=== PATIENT | female | born 1940 | race Caucasian/White ===

== ENCOUNTER 2016-06-21 05:43 | Day surgery (SDC) | payer MEDICARE, OTHER ==
[2016-06-21] MEDS ORDERED: LACTATED RINGERS 1,000 ML ONE (06:10)
[2016-06-21] MEDS ORDERED: LEVALBUTEROL NEBS 1.25 MG/3 ML VIAL NEB ONE (07:07)
[2016-06-21 08:28] VITALS: BP 138/71; TEMP 98; O2SAT 98
[2016-06-21] MEDS ORDERED: PROPOFOL 200 MG/20 ML VIAL IV ONE (09:00)
--- NOTE | 2016-06-21 09:40 | OP ---
DATE OF PROCEDURE: 06/21/16 PREOPERATIVE DIAGNOSIS: 1. Colon cancer screen. POSTOPERATIVE DIAGNOSIS: 1. External hemorrhoids. 2. Extremely long and redundant sigmoid colon. 3. Sessile polyp of the proximal descending colon. 4. Sessile polyp of the distal ascending colon. 5. Incomplete examination, the cecum was not visualized. PROCEDURE: 1. Colonoscopy with polypectomy times two separate sites. SURGEON: Luis Manuel Young MD. ANESTHESIA: MAC by Parveen Brown CRNA. ESTIMATED BLOOD LOSS: Less than 2 mL. COMPLICATIONS: None apparent. TECHNIQUE: After informed consent was obtained from the patient, the patient was taken to the Endoscopy Suite and put in the left lateral decubitus position. After adequate IV sedation was obtained, a digital rectal exam was performed and the patient was noted to have large external hemorrhoids that were non-thrombosed. Rectal tone was significantly decreased. No masses were palpated. The colonoscope was then passed with good visualization through the colon. The sigmoid was extremely long and redundant. I was able to reach the mid-portion of the ascending colon, but could not make it all the way to the cecum. We did see the cecum from a distance. I identified two polyps during this procedure, one was in the distal end of the right colon and one was in the proximal end of the left colon. Each of these were removed with cold biopsy forceps with good hemostasis and complete removal obtained. The scope was then slowly withdrawn over a good 8 minute period and no other abnormalities were identified. The scope was removed. The patient tolerated the procedure well despite her advanced age and rather frail status. The patient was transported to the outpatient area in good condition. We will monitor her there. She might need another breathing treatment before she leaves to go home. She will followup with me in two weeks. #[id number] [facility]
== END 2016-06-21 08:20 | disposition home or self-care (01) ==
LOC: AMB 05:43
PROVIDERS: ATTEND Family Medicine
DX: Z12.11 Encounter for screening for malignant neoplasm of colon (principal); D12.2 Benign neoplasm of ascending colon; D12.4 Benign neoplasm of descending colon; K64.4 Residual hemorrhoidal skin tags; I50.9 Heart failure, unspecified; J44.9 Chronic obstructive pulmonary disease, unspecified; E78.00 Pure hypercholesterolemia, unspecified; Z79.82 Long term (current) use of aspirin; Z79.899 Other long term (current) drug therapy
CPT/HCPCS: 00810; 45380; 88305; 94640; J3490; J7120; J7614

== ENCOUNTER → 2016-07-05 | Outpatient (CLI) | payer MEDICARE, OTHER | END | disposition home or self-care (01) | LOC: GMAJ 16:36 | PROVIDERS: ATTEND Family Medicine | DX: I10 Essential (primary) hypertension (principal); R41.81 Age-related cognitive decline; E78.00 Pure hypercholesterolemia, unspecified ==

== ENCOUNTER → 2016-07-09 | Outpatient (CLI) | payer MEDICARE, OTHER ==
--- NOTE | 2016-07-09 15:57 | CT ---
EXAM DESCRIPTION: Chest w/Contrast CLINICAL HISTORY: COPD COMPARISON: None. TECHNIQUE: Post contrasted multidetector CT imaging of the chest. Multiplanar reconstructions were provided. FINDINGS: Lungs and large airways: There is moderate emphysema noted. No pulmonary nodule or mass noted. Pleura: Normal. No pleural effusion or thickening. Heart and pericardium: Coronary artery disease is visualized on today's study. No pericardial disease. Mediastium and robert: Normal. No lymphadenopathy by CT size criteria. Chest wall and lower neck: No significant finding. Vessels: Normal caliber aortic root and pulmonic trunk. Bones: No significant finding. IMPRESSION: Moderate emphysema, but no evidence of mass or suspicious pulmonary nodule at this time. Coronary artery disease is noted. Electronically signed by: Rex Cabrera MD 07/09/2016 3:57 PM [employer]IE[employer]
--- NOTE | 2016-07-09 16:00 | CT ---
EXAM DESCRIPTION: Maxillofacial w/wo Contrast CLINICAL HISTORY: 76 years Female, 473.0 facial pain Nonremovable dental hardware obscures the tongue. The floor the mouth is unremarkable. The epiglottis, bilateral a full diameter of false cords are symmetrical and unremarkable. Mild atherosclerotic disease of the carotid arteries. Severe degenerative change of the cervical spine with multilevel facet degeneration. COMPARISON: None. TECHNIQUE: Prior to and after the administration of contrast and slice imaging of the face was performed. FINDINGS: The orbits and globes are unremarkable. Mild involutional changes brain noted. Bilateral parotid glands and submandibular glands are unremarkable. The frontal sinuses are clear. The ethmoid air cells are clear. The sphenoid sinuses are clear. The maxillary sinuses are clear. Dental disease seen within the left maxilla. Mastoid air cells are clear. Middle ears are clear. The nasal septum is midline. No contact point noted. IMPRESSION: Today's exam demonstrates dental disease within the left maxilla. No evidence of sinus disease on today's study. Electronically signed by: Rex Cabrera MD 07/09/2016 4:00 PM [employer] ENGINE[employer]
== END | disposition home or self-care (01) ==
LOC: CT 13:16
PROVIDERS: ATTEND Family Medicine
DX: J44.9 Chronic obstructive pulmonary disease, unspecified (principal)

== ENCOUNTER 2017-01-07 09:33 | Emergency (ER) | payer MEDICARE, OTHER ==
[2017-01-07 10:01] VITALS: TEMP 100.2
--- NOTE | 2017-01-07 10:03 | ED.PDOC ---
History of Present Illness - General Chief Complaint: Respiratory Problem Stated Complaint: cough, sore throat, headache Time Seen by Provider: 01/07/17 09:50 Source: patient, RN notes reviewed, Vital Signs reviewed, family - Daughter Exam Limitations: no limitations - History of Present Illness Comments: Patient comes in with c/o cough, congestion, RICHTER, sore throat, runny nose and body aches. Symptoms started 01/04/17. No fever or chills. + fatigue. Daughter has had the same symptoms and feels she gave this to her mother. She has a history of COPD and is suppose to be on Oxygen at home but does not use it. She is concerned this is going to go into her lungs. Timing/Duration: getting worse Cough Quality/Degree: mild, productive cough, sputum - off white Possible Cause: occasional episodes, illness exposure Improving Factors: nothing Worsening Factors: nothing Associated Symptoms: cough, headache, muscle aches, nasal congestion, nasal drainage, sore throat Respiratory Risk Factors: exposure to illness Allergies/Adverse Reactions: Allergies NO KNOWN ALLERGY Allergy (Verified 05/12/12 13:57) Home Medications: Ambulatory Orders Albuterol Sulfate [Proair Respiclick] 108 mcg IN BID 06/21/16 Arformoterol Tartrate [Brovana] 15 mcg IN DAILY 06/21/16 Aspirin [Aspirin Adult Low Dose] 81 mg PO DAILY 06/21/16 Atenolol [Tenormin] 25 mg PO DAILY 06/21/16 Atorvastatin Calcium [Lipitor] 80 mg PO DAILY 06/21/16 Duloxetine HCl [Cymbalta] 60 mg PO DAILY 06/21/16 Fluticasone Propionate (Inhala [Flovent Diskus] 50 mcg IN BID 06/21/16 Lisinopril [Prinivil] 10 mg PO DAILY 06/21/16 Pantoprazole Sodium 40 mg PO DAILY 06/21/16 Primidone 50 mg PO BID 06/21/16 Roflumilast [Daliresp] 50 mg PO DAILY 06/21/16 Tiotropium [place] Monohydrate [Spiriva Handihaler] 1 puff IN DAILY 06/21/16 Tramadol HCl 25 mg PO Q6HR PRN 06/21/16 Azithromycin Tab [Zithromax] 250 mg PO DAILY #4 tab 01/07/17 Pantoprazole Sodium 40 mg PO DAILY 01/07/17 Review of Systems - Review of Systems Constitutional: States: malaise. Denies: chills, fever EENTM: States: see HPI, nose congestion, throat pain. Denies: ear pain, nose pain Respiratory: States: cough, short of breath - no change from baseline. Denies: stridor, wheezing Cardiology: States: no symptoms reported Gastrointestinal/Abdominal: States: no symptoms reported Musculoskeletal: States: muscle pain - generalized body aches Skin: States: no symptoms reported Neurological: States: headache All other Systems: No Change from Baseline Past Medical History (General) - Patient Medical History Hx Seizures: No Hx Stroke: No Hx Dementia: No Hx Asthma: No Hx of COPD: Yes Hx Cardiac Disorders: No Hx Congestive Heart Failure: No Hx Pacemaker: No Hx Hypertension: No Hx Thyroid Disease: No Hx Diabetes: No Hx Gastroesophageal Reflux: No Hx Renal Disease: No Hx Cancer: No Hx of HIV: No Hx Hepatitis C: No Hx MRSA: No - Vaccination History Hx Tetanus, Diphtheria Vaccination: Yes Hx Influenza Vaccination: Yes Hx Pneumococcal Vaccination: Yes - Social History Hx Tobacco Use: No Hx Alcohol Use: No Hx Substance Use: No Hx Substance Use Treatment: No Hx Depression: No Family Medical History - Family History Mother Family History: Unknown Living Status: Physical Exam - Physical Exam General Appearance: Alert, Comfortable, Frail, No apparent distress, Well Developed, Well Groomed, Well Hydrated, Well Nourished Eye Exam: bilateral normal ENT Exam: TMs normal, nasal drainage, pharyngeal erythema Neck: non-tender, supple, normal inspection Respiratory: chest non-tender, no respiratory distress, decreased breath sounds - bilateral bases, rhonchi - L>R Cardiovascular/Chest: regular rate, rhythm, no gallop, no murmur Gastrointestinal/Abdominal: non tender, soft Neurologic: alert, normal mood/affect, oriented x 3 Skin Exam: normal color, warm/dry Progress - Progress Progress: 01/07/17 10:36 Will give 1st dose of Zithromax here Encouraged to use Mucinex and cough medication daughter bought her Also encouraged to use her oxygen at home as prescribed - EKG/XRAY/CT XRAY: chest - No acute pulmonary process per Radiologist Departure - Departure Clinical Impression: Upper respiratory infection Qualifiers: URI type: unspecified URI Qualified Code(s): J06.9 - Acute upper respiratory infection, unspecified COPD (chronic obstructive pulmonary disease) Qualifiers: COPD type: emphysema Emphysema type: panlobular Qualified Code(s): J43.1 - Panlobular emphysema Time of Disposition: 10:38 Disposition: Discharge to Home or Self Care Condition: Good Departure Forms: ED Discharge - Pt. Copy, Patient Portal Self Enrollment Instructions: DI for Viral Upper Respiratory Infection -- Adult Diet: resume usual diet Activity: increase activity as tolerated Referrals: Luis Manuel Young MD [Primary Care Provider] - 1-5 Days Prescriptions: Azithromycin Tab [Zithromax] 250 mg PO DAILY #4 tab Home Medications: Ambulatory Orders Albuterol Sulfate [Proair Respiclick] 108 mcg IN BID 06/21/16 Arformoterol Tartrate [Brovana] 15 mcg IN DAILY 06/21/16 Aspirin [Aspirin Adult Low Dose] 81 mg PO DAILY 06/21/16 Atenolol [Tenormin] 25 mg PO DAILY 06/21/16 Atorvastatin Calcium [Lipitor] 80 mg PO DAILY 06/21/16 Duloxetine HCl [Cymbalta] 60 mg PO DAILY 06/21/16 Fluticasone Propionate (Inhala [Flovent Diskus] 50 mcg IN BID 06/21/16 Lisinopril [Prinivil] 10 mg PO DAILY 06/21/16 Pantoprazole Sodium 40 mg PO DAILY 06/21/16 Primidone 50 mg PO BID 06/21/16 Roflumilast [Daliresp] 50 mg PO DAILY 06/21/16 Tiotropium [place] Monohydrate [Spiriva Handihaler] 1 puff IN DAILY 06/21/16 Tramadol HCl 25 mg PO Q6HR PRN 06/21/16 Azithromycin Tab [Zithromax] 250 mg PO DAILY #4 tab 01/07/17 Pantoprazole Sodium 40 mg PO DAILY 01/07/17 Additional Instructions: Use Oxygen at home Take over the counter cold medications as directed
--- NOTE | 2017-01-07 10:33 | RAD ---
PROCEDURE: Chest,2 Views CLINICAL HISTORY: cough/congestion/COPD INDICATION: Same as above COMPARISON: 07/09/2016 TECHNIQUE: PA and and lateral chest radiographs were obtained. FINDINGS: Underlying changes of COPD are again seen There are no discrete airspace infiltrates, pneumothoraces or pleural effusions. The pulmonary vascularity is normal The cardiomediastinal silhouette is unremarkable for patient's age and sex. IMPRESSION: There is no acute pleural-parenchymal process seen in the imaged lung sepulveda. Place of interpretation: [facility]. Electronically signed by: Rashi Contreras MD 01/07/2017 10:31 AM CDT Workstation: [id number]
[2017-01-07] MEDS ORDERED: AZITHROMYCIN 250 MG TAB PO ONE (10:35)
[2017-01-07 11:24] VITALS: BP 119/59; O2SAT 98
== END 2017-01-07 11:18 | disposition home or self-care (01) ==
LOC: ER 09:33
DX: J06.9 Acute upper respiratory infection, unspecified (principal); J43.1 Panlobular emphysema; Z79.82 Long term (current) use of aspirin; Z79.899 Other long term (current) drug therapy
CPT/HCPCS: 71020; Q0144

== ENCOUNTER 2017-03-10 19:13 | Emergency (ER) | payer MEDICARE, OTHER ==
[2017-03-10] MEDS ORDERED: MORPHINE SULFATE INJ 10 MG/ML VIAL IV ONE (19:47)
[2017-03-10] MEDS ORDERED: ONDANSETRON INJ 4 MG/2 ML VIAL IV ONE (19:47)
[2017-03-10] MEDS ORDERED: SODIUM CHLORIDE 0.9% 1000ML 1,000 ML IVS ONE (19:47)
--- NOTE | 2017-03-10 19:51 | ED.PDOC ---
History of Present Illness - General Chief Complaint: Abdominal Pain Stated Complaint: LLQ pain onset 2 hours ago Time Seen by Provider: 03/10/17 19:40 Information Source: patient, RN notes reviewed, Vital Signs reviewed Exam Limitations: no limitations - History of Present Illness Initial Comments: Patient comes in with c/o LLQ abdominal pain that started ~ 2 hours ago. States the pain is severe, stabbing and worse with movement. + nausea. She had a normal bowel movement w/o pain prior to coming to ER. No fever or chills. Abdominal Pain Onset Location: LLQ Pain Radiation: no radiation Quality: severe, steady, stabbing Timing/Duration: 1-3 hours Improving Factors: nothing Worsening Factors: movement Associated Symptoms: nausea/vomiting Review of Systems - Review of Systems Constitutional: States: no symptoms reported. Denies: chills, fever, malaise Respiratory: States: no symptoms reported Cardiology: States: no symptoms reported Gastrointestinal/Abdominal: States: see HPI, abdominal pain, nausea. Denies: constipation, diarrhea, vomiting Genitourinary: States: no symptoms reported Musculoskeletal: States: no symptoms reported Skin: States: no symptoms reported Neurological: States: no symptoms reported All other Systems: No Change from Baseline Past Medical History (General) - Patient Medical History Hx Seizures: No Hx Stroke: No Hx Dementia: No Hx Asthma: No Hx of COPD: Yes Hx Cardiac Disorders: No Hx Congestive Heart Failure: No Hx Pacemaker: No Hx Hypertension: Yes Hx Thyroid Disease: No Hx Diabetes: Yes Hx Gastroesophageal Reflux: Yes Hx Renal Disease: No Hx Cancer: No Hx of HIV: No Hx Hepatitis C: No Hx MRSA: No Surgical History: Hysterectomy - Vaccination History Hx Tetanus, Diphtheria Vaccination: No Hx Influenza Vaccination: No Hx Pneumococcal Vaccination: Yes - Social History Hx Tobacco Use: No Hx Chewing Tobacco Use: No Hx Alcohol Use: Yes - occasional Hx Substance Use: No Hx Substance Use Treatment: No Hx Depression: Yes Feels Threatened In Home Enviroment: No Feels Threatened In a Relationship: No Hx Physical Abuse: No Hx Emotional Abuse: No Hx Suspected Abuse: No Family Medical History - Family History Mother Family History: Unknown Living Status: Physical Exam - Physical Exam General Appearance: Alert, Comfortable, Frail, No apparent distress, Well Developed, Well Groomed, Well Nourished Eyes, Ears, Nose, Throat Exam: other - dry mucous membranes Neck: supple, normal inspection Respiratory: lungs clear, normal breath sounds, no respiratory distress, no accessory muscle use Cardiovascular/Chest: regular rate, rhythm, no edema, no gallop, no murmur Gastrointestinal/Abdominal: soft, no pulsatile mass, rebound - LLQ, tenderness - LLQ Extremity: normal inspection Neurologic: alert, normal mood/affect, oriented x 3 Skin Exam: normal color, warm/dry Comments: Vital Signs 03/10/17 19:24 Temperature 97.6 F Pulse Rate [ 59 L monitor] Respiratory 16 Rate Blood Pressure 189/83 [Right Arm] O2 Sat by Pulse 91 L Oximetry Progress - Progress Progress: 03/10/17 22:02 CT showed an incarcerated L inguinal hernia with some dilated loops of small bowels. Hernia reduced manually with good relief of pain. Re-examination no inguinal tenderness, LLQ much less tender w/o rebound Discussed with Dr. Stevens, will d/c home w/ follow up w/ Dr. Young to get clearance for surgery. Patient and daughter are agreeable with plan - Results/Orders Results/Orders: Laboratory Tests 03/10/17 03/10/17 20:00 20:00 WBC 15.8 H RBC 4.33 Hgb 13.2 Hct 39.8 MCV 92.1 MCH 30.4 MCHC 33.0 RDW 13.7 Plt Count 365 MPV 7.9 Absolute Neuts (auto) 13.30 H Absolute Lymphs (auto) 1.60 Absolute Monos (auto) 0.70 Absolute Eos (auto) 0.10 Absolute Basos (auto) 0.00 Neutrophils % 84.5 H Lymphocytes % 9.9 L Monocytes % 4.5 Eosinophils % 0.8 L Basophils % 0.3 Sodium 137 Potassium 3.5 L Chloride 104 Carbon Dioxide 26 Anion Gap 10.5 L BUN 13 Creatinine 0.66 BUN/Creatinine Ratio 19.7 Random Glucose 139 H Serum Osmolality 276.2 Calcium 8.8 Total Bilirubin 0.4 AST 30 ALT 23 Alkaline Phosphatase 89 Serum Total Protein 7.1 Albumin 4.5 Globulin 2.6 Albumin/Globulin Ratio 1.7 - EKG/XRAY/CT CT Ordered: Yes - Abd/Pelvis CT Interpretation Call Back: Yes - L inguinal incarcerated hernia with dilated loops of sm bowel, early SBO Departure - Departure Clinical Impression: Incarcerated left inguinal hernia ICD-10 Supporting Text: Hernia was reduced Time of Disposition: 22:07 Disposition: Discharge to Home or Self Care Condition: Good Departure Forms: ED Discharge - Pt. Copy, Patient Portal Self Enrollment Instructions: Groin Hernia -- Adult Diet: resume usual diet Activity: increase activity as tolerated Referrals: Luis Manuel Young MD [Primary Care Provider] - 1-2 Days (To get surgical clearance for L inguinal hernia repair) Home Medications: Ambulatory Orders Albuterol Sulfate [Proair Respiclick] 108 mcg IN BID 06/21/16 Arformoterol Tartrate [Brovana] 15 mcg IN DAILY 06/21/16 Aspirin [Aspirin Adult Low Dose] 81 mg PO DAILY 06/21/16 Atenolol [Tenormin] 25 mg PO DAILY 06/21/16 Atorvastatin Calcium [Lipitor] 80 mg PO DAILY 06/21/16 Duloxetine HCl [Cymbalta] 60 mg PO DAILY 06/21/16 Fluticasone Propionate (Inhala [Flovent Diskus] 50 mcg IN BID 06/21/16 Lisinopril [Prinivil] 10 mg PO DAILY 06/21/16 Pantoprazole Sodium 40 mg PO DAILY 06/21/16 Primidone 50 mg PO BID 06/21/16 Roflumilast [Daliresp] 50 mg PO DAILY 06/21/16 Tiotropium [place] Monohydrate [Spiriva Handihaler] 1 puff IN DAILY 06/21/16 Tramadol HCl 25 mg PO Q6HR PRN 06/21/16 Azithromycin Tab [Zithromax] 250 mg PO DAILY #4 tab 01/07/17 Pantoprazole Sodium 40 mg PO DAILY 01/07/17
--- NOTE | 2017-03-10 21:00 | CT ---
EXAM: Abdoment/Pelvis w/o Contrast CLINICAL INDICATION: 77-year-old female with LEFT lower quadrant abdominal pain with rebound. COMPARISON: 12/28/2008. EXAMINATION: CT of the abdomen and pelvis was performed without intravenous or oral contrast. Multiplanar reformatted images were provided. This exam was performed according to our departmental dose optimization program which includes use of automated exposure control, adjustment of the mA and/or kV according to patient size and/or use of iterative reconstruction technique. FINDINGS: Evaluation of solid organ pathology is limited secondary to lack of intravenous contrast. Within these limitations, the following observations are made. Chest: Evaluation through the lung bases reveals emphysema without focal opacity, pleural effusion or pneumothorax. Heart size is within normal limits. No pericardial effusion. Distal esophageal diverticulum or hiatal hernia. Abdomen and pelvis: The liver, gallbladder, pancreas, spleen, bilateral kidneys and bilateral adrenal glands are within normal limits. Circumscribed focus of hypoattenuation present within the hilar region of the LEFT kidney measures 18 mm with Hounsfield units measuring eight compatible with a simple renal cyst, (series 2, image 30). The vessels reveal dense atherosclerotic calcification otherwise normal in caliber. No abdominopelvic lymph nodes are noted to be pathologically enlarged by CT measurement criteria. The large bowel is within normal limits without abnormal bowel wall thickness or bowel dilation. Diverticular disease without findings to suggest diverticulitis. A loop of small bowel is identified present within the LEFT lower quadrant inguinal hernia. Bowel loop adjacent to the hernia site reveal a focal narrowing raising the question of transition zone and possibility of early small bowel obstruction. Small bowel loop measures distended in size approximately 2 cm, (series 2, image 61). The fluid-filled loop of small bowel within the hernia measures 2.6 x 2.3 x 2.5 cm. The narrowed opening with compressed appearing bowel loop measures 1 cm, (sagittal series 601, image 15). Distal dilated loops of small bowel are organizing appearance and measuring up to 2.4 cm. No free or intermesenteric loop fluid, discrete bowel wall thickening is identified at this time. No free air. No free abdominopelvic fluid collections. The appendix is within normal limits. The osseous structures reveals severe degenerative change of the visualized thoracic and lumbar spine. Sequela of prior compression deformity of the L1 vertebral level chronic in appearance, however appears to be new since CT examination dated 12/28/2008 and lumbar spine radiograph 03/26/2016. Approximately 30% loss of vertebral body height. No significant retropulsion into the central spinal canal. The posterior superior aspect of the vertebral body extends by approximately 2 mm. IMPRESSION: 1. LEFT lower quadrant inguinal hernia containing a dilated and fluid-filled loop of small bowel with narrowed appearance of the exiting small bowel concerning for incarcerated hernia with adjacent dilated and distended loops of small bowel compatible with early small bowel obstruction. 2. Diverticular disease without findings to suggest diverticulitis. 3. Chronic appearing, however age indeterminate fracture of the superior endplate of the L1 vertebral level. Critical findings were discussed with Dr. Grider 2056 hours 03/10/2017. Electronically signed by: Trinity Aguila MD 03/10/2017 8:59 PM [facility] Workstation: [id number]
[2017-03-10 22:31] VITALS: O2SAT 96
[2017-03-10 22:34] VITALS: BP 135/65; TEMP 97.8
== END 2017-03-10 22:33 | disposition home or self-care (01) ==
LOC: ER 19:13
DX: K40.90 Unilateral inguinal hernia, without obstruction or gangrene, not specified as recurrent (principal); J44.9 Chronic obstructive pulmonary disease, unspecified; I10 Essential (primary) hypertension; E11.9 Type 2 diabetes mellitus without complications; K21.9 Gastro-esophageal reflux disease without esophagitis
CPT/HCPCS: 36415; 74176; 80053; 85025; 93005; J2270; J2405; J7030

== ENCOUNTER → 2018-01-16 | Outpatient (CLI) | payer MEDICARE, OTHER ==
--- NOTE | 2018-01-16 14:14 | CT ---
EXAM DESCRIPTION: Head CLINICAL HISTORY: HEADACHE COMPARISON: None available TECHNIQUE: Noncontrast head CT was performed with routine protocol. FINDINGS: Normal ramos-white matter differentiation. Ventricles and sulci are prominent consistent with age-related cerebral volume loss. Low density white matter around the ventricles is consistent with chronic microvascular ischemic changes. No high density hemorrhage, focal edema or shift of the midline. No sulcal effacement. Normal orbital contents. Asymmetry of the globes is consistent with previous right cataract surgery. Basilar cisterns appear clear. Intact calvarium with no fracture or lytic lesion. Normal aeration of tympanic cavities and mastoid air cells. No fluid levels in the paranasal sinuses. Skull base appears intact. Symmetrical internal auditory canals. IMPRESSION: No acute intracranial pathologic process. This exam was performed according to our departmental dose-optimization program, which includes automated exposure control, adjustment of the mA and/or kV according to patient size and/or use of iterative reconstruction technique. Total DLP equals 752.48 mGycm. Electronically signed by: Liu Vance MD 01/16/2018 2:12 PM CDT
== END ==
LOC: CT 13:30
PROVIDERS: ATTEND Family Medicine
DX: G44.209 Tension-type headache, unspecified, not intractable (principal)

== ENCOUNTER → 2018-01-27 | Outpatient (CLI) | payer MEDICARE, OTHER ==
--- NOTE | 2018-01-27 21:12 | MRI ---
EXAM DESCRIPTION: Cervical Spine: MRI. CLINICAL HISTORY: N88.2 COMPARISON: MRI scan cervical spine without contrast 08/11/2013. TECHNIQUE: Multiplanar MRI, multiple sequences, non-contrast High-field. FINDINGS: C2-3: Disc desiccation with minimal posterior midline bulge. Arthrosis of the left facet and left uncinate spur with moderate narrowing of the neural foramen. Canal and right neuroforamen are patent. C3-4: Disc space loss and disc desiccation. Right posterior disc osteophyte bulge abutting the cord and the C4 nerve. Facet arthrosis and right uncinate spur with moderate neural foraminal narrowing. Left uncinate spur and moderate left neural foraminal narrowing. Minimal arthrosis left facet. C4-5: Disc desiccation and minimal disc space loss bilateral uncinate spurs. Mild facet arthrosis bilaterally. Moderate bilateral neural foraminal narrowing more on the right than the left. C5-6: Disc desiccation and moderate disc space loss. Posterior small disc osteophyte bulge almost abutting the cord. Bilateral uncinate spurs. Mild facet arthrosis right.. Bilateral neural foraminal stenosis more on the left than the right. Posterior ligaments are prominent. Borderline mild canal stenosis. Right T1 and T2 signal abutting the endplate to the left of midline. C6-7: Disc desiccation and moderate disc space loss. Minimal anterior ridging. Posterior midline bulge abutting the cord. Bilateral uncinate spurs. Posterior hypertrophy ligaments. Minimal arthrosis of the right facet. Mild right neural foraminal narrowing and moderate left neural foraminal narrowing. Borderline central canal stenosis. C7-T1: Disc desiccation with no bulge. Canal and neural foramina are patent. Facets are unremarkable. T1-T2: Disc desiccation and posterior bulge. Bilateral uncinate spurs. Mild canal and neural foraminal narrowing. Negative facets. Spinal alignment slightly kyphotic in the mid spine.. No cord compression or cord edema. Atlantoaxial joint demonstrates minimal arthrosis.. Base of the cerebellar tonsils is above the foramen magnum. Paravertebral soft tissues unremarkable. Vertebral bodies are not compressed at any level. Normal marrow signal in the remaining vertebral bodies and the posterior elements. IMPRESSION: 1. Right posterior C3-4 disc osteophyte bulge with moderate right neural foraminal narrowing and near stenosis of the right canal. Stable since the prior study. 2. Left uncinate spur and arthrosis of the left facet at C2-3 with moderate narrowing of the neural foramen. Progressed since the prior study. 3. Bilateral uncinate spurs at C4-5 and facet arthrosis. Moderate bilateral neural foraminal narrowing more on the right. Progressed since the prior study. 4. Posterior C5-6 disc osteophyte bulge abutting the cord. Bilateral neural foraminal stenosis more on the left than the right. Progressed since the prior study. Borderline mild canal stenosis. Progressed since the prior study. 5. C6-7 Disc desiccation and disc space loss posterior disc bulge. Borderline central canal stenosis. Moderate left neural foraminal narrowing. Progressed since the prior study. 6. Hemangioma in the superior C6 vertebral body stable since the prior study. Electronically signed by: Robinson Cunningham MD 01/27/2018 9:11 PM CDT
== END ==
LOC: MRI 14:00
PROVIDERS: ATTEND Family Medicine
DX: M54.12 Radiculopathy, cervical region (principal); M46.02 Spinal enthesopathy, cervical region; M50.223 Other cervical disc displacement at C6-C7 level; D18.09 Hemangioma of other sites

== ENCOUNTER 2019-09-28 15:24 | Emergency (ER) | payer MEDICARE, OTHER ==
[2019-09-28] MEDS ORDERED: LEVALBUTEROL NEBS 1.25 MG/3 ML VIAL NEB ONE ×2 (15:43→15:58)
[2019-09-28] MEDS ORDERED: IPRATROPIUM BROMIDE NEBS 0.5 MG/2.5 ML VIAL NEB ONE (15:44)
[2019-09-28] MEDS ORDERED: methylPREDNISolone SODIUM SUC 125 MG/2 ML VIAL IV ONE (15:44)
--- NOTE | 2019-09-28 16:27 | ED.PDOC ---
History of Present Illness - General Chief Complaint: Respiratory Problem Time Seen by Provider: 09/28/19 15:43 Source: patient, RN notes reviewed, Vital Signs reviewed, family - Daughter Exam Limitations: no limitations - History of Present Illness Initial Comments: Patient is a spry 79-year-old white female who presents with complaints of worsening cough, shortness of breath and increased difficulty in breathing. Patient states is been going on 4 to 5 days. The cough is productive for a whitish sputum. Patient denies any fever or chills. Shortness of breath is worse with exertion. She is not getting relief with her 4 times daily duo nebs. Patient also states she has had to turn up her oxygen to feel better. 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 Allergies/Adverse Reactions: Allergies NO KNOWN ALLERGY Allergy (Verified 09/28/19 16:33) Home Medications: Ambulatory Orders Albuterol Sulfate [Proair Respiclick] 108 mcg IN BID 06/21/16 Arformoterol Tartrate [Brovana] 15 mcg IN DAILY 06/21/16 Aspirin [Aspirin Adult Low Dose] 81 mg PO DAILY 06/21/16 Atenolol [Tenormin] 25 mg PO DAILY 06/21/16 Atorvastatin Calcium [Lipitor] 80 mg PO DAILY 06/21/16 Duloxetine HCl [Cymbalta] 60 mg PO DAILY 06/21/16 Fluticasone Propionate (Inhala [Flovent Diskus] 50 mcg IN BID 06/21/16 Lisinopril [Prinivil] 10 mg PO DAILY 06/21/16 Pantoprazole Sodium 40 mg PO DAILY 06/21/16 Primidone 50 mg PO BID 06/21/16 Roflumilast [Daliresp] 50 mg PO DAILY 06/21/16 Tiotropium Planada Monohydrate [Spiriva Handihaler] 1 puff IN DAILY 06/21/16 Tramadol HCl 25 mg PO Q6HR PRN 06/21/16 Azithromycin Tab [Zithromax] 250 mg PO DAILY #4 tab 01/07/17 Pantoprazole Sodium 40 mg PO DAILY 01/07/17 Ipratropium/Albuterol [Duoneb] 3 ml INH Q6HR #30 vial 09/28/19 Methylprednisolone [Medrol Dose Arun] 4 mg PO DAILY 6 Days #21 tab 09/28/19 Review of Systems - Review of Systems Constitutional: States: see HPI, malaise, weakness. Denies: chills, fever EENTM: States: no symptoms reported. Denies: blurred vision, double vision, throat pain, throat swelling Respiratory: States: see HPI, cough, orthopnea, short of breath. Denies: stridor, wheezing Cardiology: States: no symptoms reported. Denies: chest pain, palpitations, syncope Gastrointestinal/Abdominal: States: no symptoms reported. Denies: abdominal pain, diarrhea, nausea, vomiting Genitourinary: States: no symptoms reported Musculoskeletal: States: no symptoms reported. Denies: back pain, joint pain, joint swelling, neck pain Skin: States: no symptoms reported. Denies: change in color, rash Neurological: States: no symptoms reported. Denies: anxiety, headache, numbness, tingling Endocrine: States: no symptoms reported Hematologic/Lymphatic: States: no symptoms reported All other Systems: No Change from Baseline Past Medical History (General) - Patient Medical History Hx Seizures: No Hx Stroke: No Hx Dementia: No Hx Asthma: No Hx of COPD: Yes Hx Cardiac Disorders: No Hx Congestive Heart Failure: No Hx Pacemaker: No Hx Hypertension: Yes Hx Thyroid Disease: No Hx Diabetes: Yes Hx Gastroesophageal Reflux: Yes Hx Renal Disease: No Hx Cancer: No Hx of HIV: No Hx Hepatitis C: No Hx MRSA: No - Vaccination History Hx Tetanus, Diphtheria Vaccination: No Hx Influenza Vaccination: No Hx Pneumococcal Vaccination: Yes - Social History Hx Tobacco Use: No Hx Chewing Tobacco Use: No Hx Alcohol Use: Yes - occasional Hx Substance Use: No Hx Substance Use Treatment: No Hx Depression: Yes Hx Physical Abuse: No Hx Emotional Abuse: No Hx Suspected Abuse: No Family Medical History - Family History Mother Family History: Unknown Living Status: Physical Exam - Physical Exam General Appearance: Agitated, Alert, Anxious, Emaciated, Frail, Obvious distress, Well Developed, Well Groomed, Well Hydrated, Well Nourished Eyes, Ears, Nose, Throat Exam: PERRL/EOMI, normal ENT inspection, pharynx normal Neck: non-tender, full range of motion, supple, normal inspection Respiratory: chest non-tender, respiratory distress - Moderate, Patient speaking in 2-3 word sentences., decreased breath sounds - Decreased breath sounds throughout, accessory muscle use - Intercostal as well as supraclavicular, rhonchi - Diffusely throughout, wheezing - Diffusely throughout Cardiovascular/Chest: normal peripheral pulses, regular rate, rhythm, no edema, no gallop, no murmur Peripheral Pulses: radial,right: 2+, radial,left: 2+ Gastrointestinal/Abdominal: normal bowel sounds, non tender, soft Extremity: normal range of motion, non-tender, normal inspection Neurologic: cyber crime investigator II-XII nml as tested, no motor/sensory deficits, alert, normal mood/affect, oriented x 3 Skin Exam: normal color, warm/dry Lymphatic: no adenopathy Progress - Progress Progress: Differential diagnosis: Pneumonia, viral URI, COPD exacerbation, pneumothorax among others. 09/28/19 17:42 Patient is markedly improved after multiple nebulizer treatments and IV steroids. Chest x-ray does not show any pneumonia or pneumothorax. I suspect patient's issue is her COPD exacerbation. She tells me she only takes 1-2 breat vibha treatments a day. I have recommended she increase her neb treatments to 4 times daily. Her daughter and her voiced understanding and agreement with the plan of care. Plan on discharge home with a prescription for steroids. Albert Burns M.D. #[id number] - Results/Orders Results/Orders: EXAM: XR Chest, 2 Views CLINICAL HISTORY: sob TECHNIQUE: Frontal and lateral views of the chest. COMPARISON: 01/07/2017. FINDINGS: Lungs: Stable bullous emphysematous disease and scarring. No consolidation. Pleural space: Unremarkable. No pneumothorax. Heart: Unremarkable. No cardiomegaly. Mediastinum: Unremarkable. Bones/joints: Unremarkable. IMPRESSION: Chronic changes as above. No acute disease. Electronically signed by: Nancy Perdomo MD 09/28/2019 4:34 PM 09/28/19 16:15 EKG STAT EKG performed 28 Sep 2019 at 1545 hrs.: Sinus rhythm with fusion complexes at 90 bpm, septal infarct age indeterminate, ST and T wave changes concerning for lateral ischemia, abnormal EKG. Comparison EKG not available for at this time. Departure - Departure Clinical Impression: COPD with acute exacerbation Time of Disposition: 17:43 Disposition: Discharge to Home or Self Care Condition: Fair Departure Forms: ED Discharge - Pt. Copy, Patient Portal Self Enrollment Instructions: Exacerbation of COPD (DC) Diet: resume usual diet Activity: increase activity as tolerated Referrals: Luis Manuel Young MD [Primary Care Provider] - 1-5 Days Prescriptions: Ipratropium/Albuterol [Duoneb] 3 ml INH Q6HR #30 vial Methylprednisolone [Medrol Dose Arun] 4 mg PO DAILY 6 Days #21 tab Home Medications: Ambulatory Orders Albuterol Sulfate [Proair Respiclick] 108 mcg IN BID 06/21/16 Arformoterol Tartrate [Brovana] 15 mcg IN DAILY 06/21/16 Aspirin [Aspirin Adult Low Dose] 81 mg PO DAILY 06/21/16 Atenolol [Tenormin] 25 mg PO DAILY 06/21/16 Atorvastatin Calcium [Lipitor] 80 mg PO DAILY 06/21/16 Duloxetine HCl [Cymbalta] 60 mg PO DAILY 06/21/16 Fluticasone Propionate (Inhala [Flovent Diskus] 50 mcg IN BID 06/21/16 Lisinopril [Prinivil] 10 mg PO DAILY 06/21/16 Pantoprazole Sodium 40 mg PO DAILY 06/21/16 Primidone 50 mg PO BID 06/21/16 Roflumilast [Daliresp] 50 mg PO DAILY 06/21/16 Tiotropium Planada Monohydrate [Spiriva Handihaler] 1 puff IN DAILY 06/21/16 Tramadol HCl 25 mg PO Q6HR PRN 06/21/16 Azithromycin Tab [Zithromax] 250 mg PO DAILY #4 tab 01/07/17 Pantoprazole Sodium 40 mg PO DAILY 01/07/17 Ipratropium/Albuterol [Duoneb] 3 ml INH Q6HR #30 vial 09/28/19 Methylprednisolone [Medrol Dose Arun] 4 mg PO DAILY 6 Days #21 tab 09/28/19
--- NOTE | 2019-09-28 16:36 | RAD ---
EXAM: XR Chest, 2 Views CLINICAL HISTORY: sob TECHNIQUE: Frontal and lateral views of the chest. COMPARISON: 01/07/2017. FINDINGS: Lungs: Stable bullous emphysematous disease and scarring. No consolidation. Pleural space: Unremarkable. No pneumothorax. Heart: Unremarkable. No cardiomegaly. Mediastinum: Unremarkable. Bones/joints: Unremarkable. IMPRESSION: Chronic changes as above. No acute disease. Electronically signed by: Nancy Perdomo MD 09/28/2019 4:34 PM CDT
[2019-09-28 17:49] VITALS: TEMP 98.1
[2019-09-28 18:55] VITALS: BP 126/78; O2SAT 96
== END 2019-09-28 18:35 | disposition home or self-care (01) ==
LOC: ER 15:24
DX: J44.1 Chronic obstructive pulmonary disease with (acute) exacerbation (principal); I10 Essential (primary) hypertension; E11.9 Type 2 diabetes mellitus without complications; Z87.891 Personal history of nicotine dependence; Z99.81 Dependence on supplemental oxygen; Z79.82 Long term (current) use of aspirin; Z79.899 Other long term (current) drug therapy
CPT/HCPCS: 71046; 93005; 94640; J2930; J7614; J7644

== ENCOUNTER 2019-10-01 19:14 | Inpatient (IN) | payer MEDICARE ==
[2019-10-01] MEDS ORDERED: IPRATROPIUM/ALBUTEROL 3 ML VIAL NEB ONE ×2 (19:30→20:36)
[2019-10-01] MEDS ORDERED: methylPREDNISolone SODIUM SUC 125 MG/2 ML VIAL IV ONE (19:32)
[2019-10-01] MEDS ORDERED: MORPHINE SULFATE INJ 10 MG/ML VIAL IV ONE (19:32)
[2019-10-01] MEDS ORDERED: PIPERACILLIN/TAZOBACTAM 3.375 GM in SODIUM CHLORIDE 0.9% 100ML 100 ML IVPB ONE (20:04)
--- NOTE | 2019-10-01 20:06 | RAD ---
EXAM DESCRIPTION: XR Chest, 1 View CLINICAL HISTORY: 79 years Female sob TECHNIQUE: One view of the chest. COMPARISON: 09/28/2019, 01/07/2017 FINDINGS: The mid/upper lungs are again noted to be hyperlucent and hyperinflated. Again seen is scarring at both lung bases. There is a left midlung nodule which may be calcified however is not definitely present on the prior exam. Stable nodular densities in both lung bases. The lungs are otherwise clear. No pneumothorax. Normal cardiomediastinal silhouette. No acute osseous lesion. IMPRESSION: Chronic obstructive pulmonary disease with hyperinflation. Left midlung nodule not visualized on the prior exams. Follow-up CT scan recommended. Electronically signed by: Padmini Yang MD 10/01/2019 8:04 PM CDT
[2019-10-01] MEDS ORDERED: ALPRAZolam 0.25 MG TAB PO ONE (20:15)
[2019-10-01] MEDS ORDERED: ALPRAZolam 0.5 MG TAB ONE (20:22)
[2019-10-01] MEDS ORDERED: ACETYLCYSTEIN 20 % 6,000 MG/30 ML VIAL NEB ONE (20:36)
--- NOTE | 2019-10-01 21:15 | CT ---
PROCEDURE: Chest w/o Contrast CLINICAL HISTORY: 79 years Female eval lung nodule, leukocytosis, copd COMPARISON: X-ray chest study from earlier in the day and CT abdomen and pelvis study from 03/10/2017. TECHNIQUE: Contiguous axial images obtained through the chest without IV contrast. Reformatted images obtained. This exam was performed according to our department optimization program which includes automated exposure control, adjustment of the mA and/or kv according to patient size and/or use of iterative reconstruction technique. FINDINGS: There is a low-density lesion in the right kidney similar compared to the prior study that likely represents a cyst. Coronary artery calcifications. The mediastinum appears unremarkable. There are fairly marked atherosclerotic calcifications in the aorta. There are emphysematous changes. There are areas of scarring in the lower lateral right lung. There is a more nodular appearing area at the anterior right lung base likely from scarring or atelectasis measuring approximately 1.5 cm in diameter. There is patchy infiltrate in the left upper lobe/lingula which could be from an infectious process. The nodular appearing area visualized on the chest x-ray represents an area of patchy infiltrate. No pneumothorax. Mild curvature in the thoracic and lumbar spine convex left. Degenerative changes in the spine. There is mild compression fracture deformity at L1 which appears chronic. IMPRESSION: Emphysematous changes. Patchy infiltrate in the left upper lobe/lingula suggesting an infectious process. Viral pneumonia is not excluded. The nodular appearing area visualized on the chest x-ray corresponds with one of these areas of patchy infiltrate. There is probable scarring in the lower lateral right lung with a more nodular appearing area measuring 1.5 cm in diameter. Three six-month follow-up is recommended. Electronically signed by: Albert Prater MD 10/01/2019 9:14 PM CDT
[2019-10-01] MEDS ORDERED: levoFLOXacin 500MG IV 500 MG in PREMIX BAG 1 BAG IVPB ONE (21:39)
--- NOTE | 2019-10-01 21:46 | ED.PDOC ---
History of Present Illness - General Chief Complaint: Respiratory Problem Stated Complaint: I can't breathe Time Seen by Provider: 10/01/19 19:14 Source: patient Exam Limitations: no limitations - History of Present Illness Initial Comments: The patient is a 79-year-old female presented emergency room with what appears to be a COPD exacerbation continuation with worsening. The patient was seen here several days ago for COPD exacerbation and was started on steroids. She was seen the following day by her primary care doctor and placed on azithromycin and apparently given another shot of a steroid. She was also told to increase the frequency of her nebulizer treatments. She does normally wear oxygen at about 3 L according to her and has been compliant. No real productive cough. No chest pain. She presents here tonight secondary to continued worsening in spite of outpatient treatment. Patient is very scant and in respiratory distress upon arrival. She is very tremulous having just received a breathing treatment prior to arrival. She is anxious. She is not febrile. She is cooperative. There is nasal flaring and accessory muscle use. She has very little air movement. She does have scattered wheezes. Difficult to assess lung sounds otherwise secondary to poor air movement. The patient has no known coronavirus exposure, though she is certainly at high risk if she does contract it. Symptoms have been present for 3 weeks already. Timing/Duration: other - 3 weeks but worsening over the last 4 days Severity: severe Improving Factors: medication Worsening Factors: nothing Associated Symptoms: cough, shortness of breath Allergies/Adverse Reactions: Allergies NO KNOWN ALLERGY Allergy (Verified 09/28/19 16:33) Home Medications: Ambulatory Orders Albuterol Sulfate [Proair Respiclick] 108 mcg IN BID 06/21/16 Arformoterol Tartrate [Brovana] 15 mcg IN DAILY 06/21/16 Aspirin [Aspirin Adult Low Dose] 81 mg PO DAILY 06/21/16 Atenolol [Tenormin] 25 mg PO DAILY 06/21/16 Atorvastatin Calcium [Lipitor] 80 mg PO DAILY 06/21/16 Duloxetine HCl [Cymbalta] 60 mg PO DAILY 06/21/16 Fluticasone Propionate (Inhala [Flovent Diskus] 50 mcg IN BID 06/21/16 Lisinopril [Prinivil] 10 mg PO DAILY 06/21/16 Pantoprazole Sodium 40 mg PO DAILY 06/21/16 Primidone 50 mg PO BID 06/21/16 Roflumilast [Daliresp] 50 mg PO DAILY 06/21/16 Tiotropium Sanford Monohydrate [Spiriva Handihaler] 1 puff IN DAILY 06/21/16 Tramadol HCl 25 mg PO Q6HR PRN 06/21/16 Azithromycin Tab [Zithromax] 250 mg PO DAILY #4 tab 01/07/17 Pantoprazole Sodium 40 mg PO DAILY 01/07/17 Ipratropium/Albuterol [Duoneb] 3 ml INH Q6HR #30 vial 09/28/19 Methylprednisolone [Medrol Dose Arun] 4 mg PO DAILY 6 Days #21 tab 09/28/19 Review of Systems - Review of Systems Constitutional: States: malaise EENTM: States: no symptoms reported Respiratory: States: cough, short of breath, wheezing Cardiology: States: no symptoms reported Gastrointestinal/Abdominal: States: no symptoms reported Genitourinary: States: no symptoms reported Musculoskeletal: States: no symptoms reported Skin: States: no symptoms reported Neurological: States: no symptoms reported Endocrine: States: no symptoms reported All other Systems: No Change from Baseline Past Medical History (General) - Patient Medical History Hx Seizures: No Hx Stroke: No Hx Dementia: No Hx Asthma: No Hx of COPD: Yes Hx Cardiac Disorders: No Hx Congestive Heart Failure: No Hx Pacemaker: No Hx Hypertension: Yes Hx Thyroid Disease: No Hx Diabetes: Yes Hx Gastroesophageal Reflux: Yes Hx Renal Disease: No Hx Cancer: No Hx of HIV: No Hx Hepatitis C: No Hx MRSA: No - Vaccination History Hx Tetanus, Diphtheria Vaccination: No Hx Influenza Vaccination: No Hx Pneumococcal Vaccination: Yes Immunizations Up to Date: No - Social History Hx Tobacco Use: No Hx Chewing Tobacco Use: No Hx Alcohol Use: Yes - occasional Hx Substance Use: No Hx Substance Use Treatment: No Hx Depression: Yes Hx Physical Abuse: No Hx Emotional Abuse: No Hx Suspected Abuse: No - Female History Patient is a Female of Child Bearing Age (10 -59 yrs old): No - Triage Comment ED Triage Comment: Patient presents wth shortnesss of breath that she reports has worsened over the last few days Family Medical History - Family History Mother Family History: Unknown Living Status: Physical Exam - Physical Exam General Appearance: Alert, Frail, Obvious distress, Ill Appearing Eye Exam: bilateral normal Ears, Nose, Throat: hearing grossly normal, normal pharynx Neck: full range of motion, supple, other - Accessory muscle use and JVD are present Respiratory: respiratory distress, decreased breath sounds, accessory muscle use, wheezing Cardiovascular/Chest: normal peripheral pulses, no edema, other - Regular rhythm but mildly tachycardic Peripheral Pulses: radial,right: 2+, radial,left: 2+ Gastrointestinal/Abdominal: non tender - The patient is very thin, soft Rectal Exam: deferred Back Exam: no CVA tenderness, no vertebral tenderness Extremity: normal range of motion, non-tender, normal inspection, no pedal edema, normal capillary refill 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, alert, oriented x 3 Skin Exam: normal color Comments: Vital Signs - 24 hr 10/01/19 10/01/19 10/01/19 19:20 19:26 19:40 Temperature 97.3 F L Pulse Rate 101 H Pulse Rate [ 98 H monitor] Respiratory 25 H 25 H 24 Rate Blood Pressure 109/76 [Left Arm] O2 Sat by Pulse 97 98 Oximetry 10/01/19 10/01/19 10/01/19 20:14 21:00 21:10 Temperature 98.3 F Pulse Rate 102 H Pulse Rate [ 105 H 99 H monitor] Respiratory 18 22 22 Rate Blood Pressure 146/106 [Left Arm] O2 Sat by Pulse 98 99 Oximetry Progress - Progress Progress: 10/01/19 21:50 The patient is a 79-year-old female presented emergency room in respiratory distress due to a COPD exacerbation triggered by a left midlung field pneumonia. The patient has failed outpatient therapy with steroids and increased breathing treatments and oral azithromycin. Blood and sputum cultures are being done. The patient has marked leukocytosis. She is currently afebrile however. She does requiring increased oxygen demand as well as frequent breathing treatments. She is doing a little better after breathing treatment here. She also received a small dose of Xanax and morphine for the air hunger and anxiety. This has helped as well. The patient has been placed on Zosyn and Levaquin for now. Respiratory distress has improved though she still has significant increased work of breathing from baseline. The patient will likely require 3 to 5 days in the hospital for treatment. josey camacho [id number] 10/01/19 21:52 Critical care time spent for treatment of respiratory distress is 40 minutes. - Results/Orders Results/Orders: 10/01/19 19:31 Telemetry .CONTINUOUS 10/01/19 20:00 EKG STAT EKG shows left axis deviation with poor R wave progression in anterior leads. No definitive T wave changes indicative of acute ischemia. Normal sinus rhythm at 98 bpm. Normal QT interval. Mild left axis. Chest x-ray shows COPD and chronic scarring along with what appears to be new nodularity in the left lung field. CT scan of the chest without contrast shows chronic scarring and extensive COPD changes. Additionally there is left lingular and mid the lower lung field patchy infiltrates consistent with infectious process. 10/01/19 20:14 BLOOD CULTURE Stat 10/01/19 21:29 SPUTUM CULTURE Stat Laboratory Results - last 24 hr 10/01/19 10/01/19 10/01/19 19:26 19:26 19:26 WBC 29.7 H* RBC 4.72 Hgb 14.0 Hct 43.2 MCV 91.4 MCH 29.6 MCHC 32.4 L RDW 13.9 Plt Count 618 H MPV 8.4 Absolute Neuts (auto) Not Reportable Absolute Lymphs (auto) Not Reportable Absolute Monos (auto) Not Reportable Absolute Eos (auto) Not Reportable Neutrophils % Not Reportable Neutrophils % (Manual) 92.0 H Lymphocytes % Not Reportable Lymphocytes % (Manual) 5.0 Monocytes % Not Reportable Monocytes % (Manual) 2.0 Eosinophils % Not Reportable Basophils % Not Reportable Band Neutrophils 1.0 Platelet Estimate Increased Normal RBC Morphology Normal rbc morph PT 9.8 INR < 1.00 PTT (SP) 24.4 Sodium 138 Potassium 3.6 Chloride 105 Carbon Dioxide 22 Anion Gap 14.6 BUN 17 Creatinine 0.81 BUN/Creatinine Ratio 21.0 H Random Glucose 128 H Serum Osmolality 278.9 Calcium 9.5 Magnesium 2.0 Total Bilirubin 0.7 AST 30 ALT 25 Alkaline Phosphatase 84 Creatine Kinase 82 CK-MB (CK-2) 6.9 H* CK-MB (CK-2) % Not Reportable Troponin I 0.02 B-Natriuretic Peptide 236.0 H* Serum Total Protein 8.4 H Albumin 4.3 Globulin 4.1 H Albumin/Globulin Ratio 1.0 L Departure - Departure Clinical Impression: COPD with acute exacerbation, Respiratory distress Pneumonia Qualifiers: Pneumonia type: due to unspecified organism Laterality: left Lung location: lower lobe of lung Qualified Code(s): J18.9 - Pneumonia, unspecified organism Disposition: Admit Patient Condition: Poor Departure Forms: ED Discharge - Pt. Copy, Patient Portal Self Enrollment Referrals: Luis Manuel Young MD [Primary Care Provider] - 1-2 Weeks Home Medications: Ambulatory Orders Albuterol Sulfate [Proair Respiclick] 108 mcg IN BID 06/21/16 Arformoterol Tartrate [Brovana] 15 mcg IN DAILY 06/21/16 Aspirin [Aspirin Adult Low Dose] 81 mg PO DAILY 06/21/16 Atenolol [Tenormin] 25 mg PO DAILY 06/21/16 Atorvastatin Calcium [Lipitor] 80 mg PO DAILY 06/21/16 Duloxetine HCl [Cymbalta] 60 mg PO DAILY 06/21/16 Fluticasone Propionate (Inhala [Flovent Diskus] 50 mcg IN BID 06/21/16 Lisinopril [Prinivil] 10 mg PO DAILY 06/21/16 Pantoprazole Sodium 40 mg PO DAILY 06/21/16 Primidone 50 mg PO BID 06/21/16 Roflumilast [Daliresp] 50 mg PO DAILY 06/21/16 Tiotropium Sanford Monohydrate [Spiriva Handihaler] 1 puff IN DAILY 06/21/16 Tramadol HCl 25 mg PO Q6HR PRN 06/21/16 Azithromycin Tab [Zithromax] 250 mg PO DAILY #4 tab 01/07/17 Pantoprazole Sodium 40 mg PO DAILY 01/07/17 Ipratropium/Albuterol [Duoneb] 3 ml INH Q6HR #30 vial 09/28/19 Methylprednisolone [Medrol Dose Arun] 4 mg PO DAILY 6 Days #21 tab 09/28/19 Decision To Admit - Decistion To Admit Decision to Admit Reason: Medical Nature Decision to Admit Date: 10/01/19 Decision to Admit Time: 21:52
[2019-10-01] MEDS ORDERED: levoFLOXacin 500MG IV 100 ML IVPB ONE (21:51)
--- NOTE | 2019-10-01 22:25 | HP ---
SUPERVISING PHYSICIAN: Chris Riley MD CHIEF COMPLAINT: Shortness of breath. HISTORY OF PRESENT ILLNESS: This is an 79 year-old female patient who presented to the Emergency Room for the second time in 4 days due to shortness of breath. She has a long history of chronic obstructive pulmonary disease. She quit smoking approximately 11 years ago. She had actually seen her primary care physician, Dr. Young, at the end of July for shortness of breath with an exacerbation of chronic obstructive pulmonary disease. He had given her some steroids and some Zithromax. She got quite a bit better. She had started on BehavioSec and on Saturday, she said it hit her very sudden and she became extremely short of breath with wheezing. She did not have much of a cough but the wheezing and shortness of breath were problematic and it worsened over the next day or so. She went to the Emergency Room and actually got a dose of IV Solu-Medrol as well as a Medrol Dosepak. She went home and her symptoms continued to worsen so she came back to the Emergency Room on the day prior to admission. Her initial vital signs showed a temperature of 97.3 with a heart rate of 98 that went up to the 1-teens. Blood pressure was 109/76 with a respiratory rate in the mid 20s. Lab studies were done and her initial WBCs were 29,700 with a left shift on her differential. Her electrolytes were basically within normal limits but her lactic acid was 3.5. CK-MB was 6.9 and BNP was 236. She received some fluids. Blood cultures were drawn. She was given several breathing treatments. She was started on Rocephin and azithromycin. Followup lactic acid only came down to 2.4. She was visibly short of breath. She was admitted to the hospital in stable condition. PAST MEDICAL HISTORY: 1. Seasonal allergies. 2. Congestive heart failure with an ejection fraction of 65% in 2008 per echocardiogram. 3. Chronic obstructive pulmonary disease. 4. Hyperlipidemia. 5. Osteoarthritis. 6. Hypertension. 7. Carotid artery stenosis. PAST SURGICAL HISTORY: 1. Cataract removal. 2. Hysterectomy. CURRENT MEDICATIONS: Per the EMR and awaiting verification. ALLERGIES: No known drug allergies. FAMILY HISTORY: Cancer. SOCIAL HISTORY: She is . She has 3 children. She was a heavy smoker until 2007. She denies any ETOH illicit drug use. REVIEW OF SYSTEMS: GENERAL: Positive for fatigue, negative for fever or weight changes. HEENT: Positive for sinus symptoms, negative for ear pain, vision changes, sore throat. RESPIRATORY: As per history of present illness. CARDIAC: Negative for chest pain, palpitations, tachycardia. GI: Negative for nausea, vomiting, diarrhea. GENITOURINARY: Negative for hematuria, dysuria, polyuria. MUSCULOSKELETAL: Negative for arthralgias, myalgias.. SKIN: Negative for lesions or rashes. NEUROLOGICAL: Negative for headaches, dizziness or seizures. PHYSICAL EXAMINATION: VITAL SIGNS: Temperature 97.6, heart rate 104, blood pressure 107/76, respiratory rate 24, oxygen saturation 93% on 3 liter nasal cannula. GENERAL: This is a thin 79 year-old female lying in her hospital bed. She is in moderate respiratory distress. HEENT: Normocephalic and atraumatic. Pupils are equal and reactive. Oropharynx is clear. NECK: Supple without mass. RESPIRATORY: There is expiratory wheezing throughout as well as rhonchi and decreased breath sounds. No crackles noted. She is also tachypneic with accessory muscle use. She can only speak in 1 to 2-word phrases due to her shortness of breath. CHEST: There is equal rise and fall of the chest with inspiration and expiration. CARDIOVASCULAR: Regular rate and rhythm. At times she is tachycardic. ABDOMEN: Soft, nondistended, non-tender. Bowel sounds are positive. EXTREMITIES: No cyanosis, clubbing, or edema. NEUROLOGIC: She is awake, alert, and oriented x3. Cranial nerves II through XII are grossly intact as tested. LABORATORY: Followup WBC 14,000 with hemoglobin 11.6 and hematocrit 35.8. She continues to have a left shift on her differential. Electrolytes are basically was negative. Followup lactic acid was 2. Urinalysis was unremarkable. Sputum culture pending. Blood cultures are pending. Influenza A and B per PCR are both negative. COVID-19 testing is pending. RADIOLOGY: CHEST X-RAY: Chronic obstructive pulmonary disease with hyperinflation, left midlung nodule not visualized on prior exam. CHEST CT: Emphysematous changes with patchy infiltrate in the left upper lobe lingula suggesting an infectious process. Viral pneumonia is not excluded. A nodular appearing area visualized on chest x-ray corresponds with one of these areas of patchy infiltrate. There is probable scarring in the lower lateral right lung with a more nodular appearing area measuring 1.5 cm in diameter. A 3 to 6-month followup is recommended. All other labs and films have been reviewed via the EMR. ASSESSMENT: 1. Sepsis related to left upper lobe pneumonia community acquired complicated by a history of chronic obstructive pulmonary disease. On admission, she had a respiratory rate in the mid to upper 20s with heart rate in the 1- teens. WBC 29,700 on admission. She also had an elevated lactate. 2. Chronic obstructive pulmonary disease with acute exacerbation. 3. High risk for COVID-19. 4. Hypertension. 5. Hyperlipidemia. 6. Congestive heart failure, diastolic in etiology with an ejection fraction of 65% per echocardiogram in 2007. 7. Seasonal allergies. 8. Osteoarthritis. PLAN: The patient has been admitted to the hospital. The pneumonia guidelines have been initiated and COVID-19 testing is pending. She will be on aggressive pulmonary hygiene as well as azithromycin and Rocephin. She will continue on an IV steroid taper and hopefully we can change those to oral prednisone in the next several days. Her prognosis is very poor and it may be recommended at some point that she have a hospice consultation. She will also need a followup on the pulmonary nodules per CT scan of the chest. Will continue aggressive pulmonary hygiene and will monitor closely and follow as needed. #[id number] [facility]
[2019-10-01] MEDS ORDERED: MORPHINE SULFATE INJ 10 MG/ML VIAL IV PRN (23:36)
[2019-10-01] MEDS ORDERED: ONDANSETRON INJ 4 MG/2 ML VIAL IV PRN (23:36)
[2019-10-01] MEDS ORDERED: ACETAMINOPHEN 325 MG TAB PO PRN (23:36)
[2019-10-01] MEDS ORDERED: MAGNESIUM HYDROXIDE 30 ML UD PO PRN (23:36)
[2019-10-01] MEDS ORDERED: ALBUTEROL SULFATE 2.5 MG/3 ML VIAL NEB PRN (23:36)
[2019-10-02] MEDS ORDERED: CEFEPIME 2 GM VIAL ONE (00:30)
[2019-10-02] MEDS ORDERED: SODIUM CHL 0.9% 100ML MINI-BAG 100 ML IVPB ONE (00:31)
[2019-10-02] MEDS: IV SET AND CAP CHANGE INJ INJ SCH (00:35)
[2019-10-02] MEDS: CEFEPIME 2 GM in SODIUM CHL 0.9% 100ML MINI-BAG 100 ML IVPB SCH ×2 (00:38→13:00)
[2019-10-02] MEDS ORDERED: SODIUM CHLORIDE 0.9% 1000ML 1,000 ML IVS ONE (02:09)
[2019-10-02] MEDS ORDERED: SODIUM CHLORIDE 0.9% 1000ML 1,000 ML ONE (02:33)
[2019-10-02] MEDS: methylPREDNISolone SODIUM SUC 40 MG/ML VIAL IV SCH ×4 (02:42→21:22)
[2019-10-02] MEDS ORDERED: PANTOPRAZOLE SODIUM IV 40 MG VIAL ONE (04:27)
[2019-10-02] MEDS ORDERED: PANTOPRAZOLE SODIUM IV 40 MG VIAL IV SCH (06:30)
[2019-10-02] MEDS ORDERED: SODIUM CHLORIDE 0.45% 1000ML 1,000 ML IVS ONE (07:33)
[2019-10-02] MEDS: BUDESONIDE NEBS 0.5 MG/2 ML INH NEB SCH ×2 (08:36→20:30)
[2019-10-02] MEDS: IPRATROPIUM/ALBUTEROL 3 ML VIAL NEB SCH ×4 (08:36→20:30)
[2019-10-02] MEDS ORDERED: methylPREDNISolone SODIUM SUC 40 MG/ML VIAL IV SCH (09:00)
[2019-10-02] MEDS ORDERED: methylPREDNISolone SODIUM SUC 40 MG/ML VIAL ONE (14:05)
[2019-10-02] MEDS ORDERED: ALPRAZolam 0.5 MG TAB PO PRN (14:36)
[2019-10-02] MEDS: ALPRAZolam 0.25 MG TAB PO PRN ×2 (14:45→21:20)
[2019-10-02] MEDS ORDERED: methylPREDNISolone SODIUM SUC 125 MG/2 ML VIAL IV ONE (18:13)
[2019-10-02] MEDS ORDERED: ENOXAPARIN SODIUM 40 MG/0.4 ML SYG SUBCU ONE (19:58)
[2019-10-02] MEDS: levoFLOXacin 750MG IV 750 MG in PREMIX BAG 1 BAG IVPB SCH ×2 (20:25→20:30)
[2019-10-02] MEDS: SODIUM CHLORIDE 0.9% (FLUSH) 10 ML SYG IV PRN (20:26)
[2019-10-02] MEDS: ENOXAPARIN SODIUM 40 MG/0.4 ML SYG SUBCU SCH (20:26)
[2019-10-02] MEDS ORDERED: traMADol HCL 50 MG TAB PO PRN (21:52)
[2019-10-02] MEDS ORDERED: METOPROLOL TARTRATE 50 MG TAB PO SCH (22:00)
[2019-10-03] MEDS: CEFEPIME 2 GM in SODIUM CHL 0.9% 100ML MINI-BAG 100 ML IVPB SCH ×3 (00:15→23:27)
[2019-10-03] MEDS: PRIMIDONE 50 MG TAB PO SCH ×3 (00:15→21:11)
[2019-10-03] MEDS: SODIUM CHLORIDE 0.9% (FLUSH) 10 ML SYG IV PRN (00:16)
[2019-10-03] MEDS ORDERED: PANTOPRAZOLE SODIUM TAB 40 MG PO ONE (05:00)
[2019-10-03] MEDS: methylPREDNISolone SODIUM SUC 40 MG/ML VIAL IV SCH ×3 (06:36→21:10)
[2019-10-03] MEDS: PANTOPRAZOLE SODIUM TAB 40 MG PO SCH (06:36)
[2019-10-03] MEDS: METOPROLOL TARTRATE 50 MG TAB PO SCH ×2 (08:18→18:27)
[2019-10-03] MEDS: LISINOPRIL 10 MG TAB PO SCH (08:18)
[2019-10-03] MEDS: DULoxetine HCL 30 MG CAP PO SCH (08:18)
[2019-10-03] MEDS: ASPIRIN (ENTERIC COATED) 81 MG TAB PO SCH (08:18)
[2019-10-03] MEDS: IPRATROPIUM/ALBUTEROL 3 ML VIAL NEB SCH ×4 (08:30→20:45)
[2019-10-03] MEDS ORDERED: predniSONE 20 MG TAB PO SCH (09:00)
[2019-10-03] MEDS: ROFLUMILAST PO SCH (09:00)
[2019-10-03] MEDS: BUDESONIDE NEBS 0.5 MG/2 ML INH NEB SCH ×2 (09:30→20:45)
[2019-10-03] MEDS: TIOTROPIUM INHALER INH SCH (09:30)
--- NOTE | 2019-10-03 11:16 | RAD ---
EXAM: XR Chest, 1 View CLINICAL HISTORY: copd TECHNIQUE: Frontal view of the chest. COMPARISON: CT chest 10/01/2019. FINDINGS: Lungs: Emphysematous changes are present. There is stable coarse parenchymal consolidation within the left midlung and right base. Pleural space: Unremarkable. No pneumothorax. Heart: Unremarkable. No cardiomegaly. Mediastinum: Unremarkable. Bones/joints: Unremarkable. IMPRESSION: Stable abnormalities as above. Electronically signed by: Nancy Perdomo MD 10/03/2019 11:15 AM CDT
[2019-10-03] MEDS ORDERED: BUDESONIDE NEBS 0.25 MG/2 ML INH ONE (11:54)
[2019-10-03] MEDS ORDERED: MAGNESIUM SULFATE PREMIX 2GM 0 ML IVPB ONE (11:55)
--- NOTE | 2019-10-03 13:22 | PN ---
SUPERVISING PHYSICIAN: Chris Riley MD DATE: 10/03/19 SUBJECTIVE: The patient is sitting up in bed, she is much more alert today. She did say she had a rough afternoon the previous day. She had gotten up to go to the bedside commode and became quite hypoxic. Her heart rate did go up into the 140s and she became quite anxious. A Hopkins catheter was placed and it took her some time to recover but she is feeling much better today. She is short of breath with any exertion but she does feel much improved since yesterday. She denies chest pain, nausea or vomiting. OBJECTIVE: VITAL SIGNS: Temperature 98.3, heart rate 83, blood pressure 132/84, respiratory rate 25, oxygen saturation 99% on 2 liter nasal cannula. RESPIRATORY: Diminished breath sounds throughout. She is tachypneic. She can only speak in 2 to 3-word phrases. CARDIAC: Regular rate and rhythm. GI: Soft, nondistended, non-tender. Bowel sounds are positive. . NEUROLOGICAL: She is awake, alert, and oriented x3. LABORATORY: WBC 16,300 with hemoglobin of 12.2, hematocrit 38.5. She has a left shift on her differential. Blood gas from yesterday has a PC02 of 30 with P02 of 107, pH 7.33. Electrolytes are unremarkable. Blood culture show no growth at 24 hours. Sputum culture is pending. Chest x-ray shows stable abnormalities including emphysematous changes. Stable coarse parenchymal consolidation within the left midline and right base. All other labs and films have been reviewed via the EMR. ASSESSMENT: 1. Sepsis related to left upper lobe pneumonia community acquired complicated by a history of chronic obstructive pulmonary disease. On admission, she had a respiratory rate in the mid to upper 20s with heart rate in the 1- teens. WBC 29,700 on admission. She also had an elevated lactate. 2. Chronic obstructive pulmonary disease with acute exacerbation. 3. High risk for COVID-19. 4. Hypertension. 5. Hyperlipidemia. 6. Congestive heart failure, diastolic in etiology with an ejection fraction of 65% per echocardiogram in 2007. 7. Seasonal allergies. 8. Osteoarthritis. PLAN: We will continue present supportive care. We will try to do bladder training tomorrow to discontinue the Hopkins catheter as long as she can tolerate activity. I have lab and chest x-ray for in the morning. I will also monitor her cultures and await her COVID-19 results. Continue to encourage her to rest and to minimize activity and slowly increase it. She will most likely need physical therapy on Saturday due to her deconditioning. She will be tapered off her IV steroids today and hopefully start on her oral steroid taper tomorrow. We will continue with her present antibiotic therapy and continue to monitor her closely and follow as needed. [facility][id number] [facility]
[2019-10-03] MEDS: ALPRAZolam 0.25 MG TAB PO PRN (18:28)
[2019-10-03] MEDS: ATORVASTATIN 20 MG TAB PO SCH (21:10)
[2019-10-03] MEDS: ENOXAPARIN SODIUM 40 MG/0.4 ML SYG SUBCU SCH (21:11)
[2019-10-04] MEDS: PANTOPRAZOLE SODIUM TAB 40 MG PO SCH (05:54)
[2019-10-04] MEDS: methylPREDNISolone SODIUM SUC 40 MG/ML VIAL IV SCH (05:54)
[2019-10-04] MEDS: IPRATROPIUM/ALBUTEROL 3 ML VIAL NEB SCH ×4 (08:00→20:00)
[2019-10-04] MEDS: BUDESONIDE NEBS 0.5 MG/2 ML INH NEB SCH ×2 (08:00→20:20)
--- NOTE | 2019-10-04 09:42 | RAD ---
PROCEDURE: XR Chest, 1 View CLINICAL INDICATION: The patient is 79 years old and is Female; copd exac MAIN TECHNIQUE: Frontal view of the chest. COMPARISON: Comparison is made to the prior radiograph from one day earlier. FINDINGS: LUNGS: The lungs are clear and free of focal consolidation. Lungs are hyperinflated. PLEURAL SPACE: There is no pneumothorax. There are no pleural effusions noted. HEART: The heart size is normal. MEDIASTINUM: The mediastinal contour is normal. BONES/JOINTS: No acute abnormality noted. VASCULATURE: The aortic knob is calcified. TUBES, LINES AND DEVICES: There are electrocardiogram leads present. IMPRESSION: No active disease is seen in the chest. Electronically signed by: Gilmer Sanchez MD 10/04/2019 9:40 AM CDT
[2019-10-04] MEDS ORDERED: POTASSIUM CHLORIDE 20 MEQ TAB PO ONE (09:51)
[2019-10-04] MEDS: DULoxetine HCL 30 MG CAP PO SCH (10:11)
[2019-10-04] MEDS: predniSONE 20 MG TAB PO SCH (10:12)
[2019-10-04] MEDS: LISINOPRIL 10 MG TAB PO SCH (10:18)
[2019-10-04] MEDS: ASPIRIN (ENTERIC COATED) 81 MG TAB PO SCH (10:18)
[2019-10-04] MEDS: PRIMIDONE 50 MG TAB PO SCH ×2 (10:18→20:50)
[2019-10-04] MEDS: METOPROLOL TARTRATE 50 MG TAB PO SCH ×2 (10:24→16:41)
[2019-10-04] MEDS ORDERED: POTASSIUM CHLORIDE 10 MEQ TAB PO ONE (11:00)
[2019-10-04] MEDS: ROFLUMILAST PO SCH (11:02)
[2019-10-04] MEDS: CEFEPIME 2 GM in SODIUM CHL 0.9% 100ML MINI-BAG 100 ML IVPB SCH ×2 (11:02→23:55)
[2019-10-04] MEDS: ALPRAZolam 0.25 MG TAB PO PRN (11:11)
[2019-10-04] MEDS: TIOTROPIUM INHALER INH SCH (12:47)
[2019-10-04] MEDS: guaiFENesin ER TAB 600 MG TAB PO SCH ×2 (13:28→20:50)
[2019-10-04] MEDS: PROMETHAZINE W/CODEINE SYR 6.25 MG/10 MG/5 ML UD PO PRN ×2 (13:28→20:51)
--- NOTE | 2019-10-04 14:46 | PN ---
SUPERVISING PHYSICIAN: Chris Riley MD DATE: 10/04/19 SUBJECTIVE: The patient is sitting up in bed. She complains of much less shortness of breath, although she is still having a difficult time getting to the side of the bed. I told her we would increase her activity and try to get her to where she could slowly get to the bedside commode and we would try to discontinue her catheter as soon as she was able to tolerate getting up to the bedside commode. She denies chest pain, nausea or vomiting. OBJECTIVE: VITAL SIGNS: Temperature 97.3, heart rate 75, blood pressure 167/76, respiratory rate 22, oxygen saturation 97% on 2 liter nasal cannula. She does drop to the low 90s with exertion. RESPIRATORY: Diminished breath sounds throughout. She is slightly tachypneic and can still only speak in 3 to 4-word phrases and gets visibly short of breath. CARDIAC: Regular rate and rhythm. GI: Abdomen soft, nondistended, non-tender. Bowel sounds are positive. . NEUROLOGICAL: She is awake, alert, and oriented x3. LABORATORY: WBC 16,900 with hemoglobin of 12.7, hematocrit 38.6. Platelet count is up at 513,000. She has a left shift on her differential. Potassium is slightly low at 3.3 with carbon dioxide of 19. BUN 21, creatinine 0.65. Sputum culture is pending. Her preliminary blood cultures show no growth at 48 hours. Chest x-ray shows no active disease seen in the chest. ASSESSMENT: 1. Sepsis related to left upper lobe pneumonia community acquired complicated by a history of chronic obstructive pulmonary disease. On admission, she had a respiratory rate in the mid to upper 20s with heart rate in the 1- teens. WBC 29,700 on admission. She also had an elevated lactate. 2. Chronic obstructive pulmonary disease with acute exacerbation. 3. High risk for COVID-19. 4. Hypertension. 5. Hyperlipidemia. 6. Congestive heart failure, diastolic in etiology with an ejection fraction of 65% per echocardiogram in 2007. 7. Seasonal allergies. 8. Osteoarthritis. PLAN: We will continue present supportive care. We are still awaiting her COVID-19 results. Hopefully, those will be back tomorrow. She should be able to be discharged in the next one to two days. Her IV steroids have been tapered since she started oral steroids this morning. Will hold on a chest x-ray but repeat her lab in the morning. Most likely, her elevated WBCs would be due to her steroid use. I have also ordered physical therapy to check for discharge. I have also ordered bladder training and as soon as the patient is physically able to get up to the bedside commode without going into respiratory distress, we can discontinue her Hopkins catheter. Otherwise, we will continue to monitor closely and follow as needed. [facility][id number] [facility]
[2019-10-04] MEDS ORDERED: BUDESONIDE NEBS 0.25 MG/2 ML INH ONE (20:30)
[2019-10-04] MEDS: levoFLOXacin 750MG IV 750 MG in PREMIX BAG 1 BAG IVPB SCH (20:48)
[2019-10-04] MEDS: SODIUM CHLORIDE 0.9% (FLUSH) 10 ML SYG IV PRN ×2 (20:49→23:55)
[2019-10-04] MEDS: ATORVASTATIN 20 MG TAB PO SCH (20:49)
[2019-10-04] MEDS: ENOXAPARIN SODIUM 40 MG/0.4 ML SYG SUBCU SCH (20:49)
[2019-10-05] MEDS: IV SET AND CAP CHANGE INJ INJ SCH (00:18)
[2019-10-05] MEDS: PANTOPRAZOLE SODIUM TAB 40 MG PO SCH (05:42)
[2019-10-05] MEDS: predniSONE 20 MG TAB PO SCH (08:04)
[2019-10-05] MEDS: PRIMIDONE 50 MG TAB PO SCH ×2 (08:04→20:35)
[2019-10-05] MEDS: guaiFENesin ER TAB 600 MG TAB PO SCH ×2 (08:05→20:35)
[2019-10-05] MEDS: DULoxetine HCL 30 MG CAP PO SCH (08:05)
[2019-10-05] MEDS: LISINOPRIL 10 MG TAB PO SCH (08:05)
[2019-10-05] MEDS: ASPIRIN (ENTERIC COATED) 81 MG TAB PO SCH (08:05)
[2019-10-05] MEDS: ROFLUMILAST PO SCH (08:05)
[2019-10-05] MEDS: METOPROLOL TARTRATE 50 MG TAB PO SCH ×2 (08:05→16:56)
[2019-10-05] MEDS: BUDESONIDE NEBS 0.5 MG/2 ML INH NEB SCH ×2 (08:55→20:00)
[2019-10-05] MEDS: IPRATROPIUM/ALBUTEROL 3 ML VIAL NEB SCH ×4 (08:55→20:00)
[2019-10-05] MEDS: TIOTROPIUM INHALER INH SCH (10:16)
[2019-10-05] MEDS: CEFEPIME 2 GM in SODIUM CHL 0.9% 100ML MINI-BAG 100 ML IVPB SCH ×2 (11:59→23:13)
--- NOTE | 2019-10-05 15:29 | PN ---
SUPERVISING PHYSICIAN: Vinay Deshpande MD DATE: 10/05/19 SUBJECTIVE: The patient feels like she is breathing a little easier although she does look actively short of breath all the time. She notes still difficult breathing when she gets up and goes to the restroom. We are waiting for her to be cleared from COVID testing so she can get some physical therapy and hopefully be able to discharge in the next 24 hours. She denies any nausea or vomiting. She does note she is a little depressed and wants to get out of the room, but otherwise doing okay. OBJECTIVE: VITAL SIGNS: She remains afebrile. Temperature 98. Pulse 64. Blood pressure 141/68. Respirations 20. Saturation 97% on 2 liters nasal cannula. GENERAL: The patient is resting comfortably, does not appear to be in any distress. She has a little bit of tachypnea, but is conversant in fairly complete sentences. HEART: Regular rate and rhythm. ABDOMEN: Soft, nontender. Positive bowel sounds. EXTREMITIES: No edema. NEUROLOGIC: Alert and oriented times three. LABORATORY: White count showing slight improvement down to 16,000, hemoglobin 12.8, hematocrit 38.8, platelet count 503,000. Differential shows continued left shift. Chemistries shows potassium 3.3, carbon dioxide 18, BUN 17, creatinine 0.6, magnesium 1.8. RADIOLOGY: No additional studies today. ASSESSMENT: 1. Sepsis due to left upper lobe pneumonia, community acquired, with the patient with a longstanding of advanced chronic obstructive pulmonary disease, showing improvement with treatment. 2. Chronic obstructive pulmonary disease with acute exacerbation, secondary to #1. 3. History of hypertension. 4. High risk for COVID-19, pending testing. 5. History of congestive heart failure, diastolic in etiology with an ejection fraction of 65% per echocardiogram in 2007. 7. Seasonal allergies. 8. Osteoarthritis. PLAN: We are still waiting on COVID testing. Once available, we will get her evaluated by physical therapy and should she show continued improvement, I would anticipate she will discharge as soon as those are available. Until then, we will continue to taper steroids, leave her on oral and she how she does. Labs and chest x-ray appear to be fairly stable. We will hold off on those. She continues with bladder training once she is able to get up. Again, hopefully anticipate discharging either tomorrow or the next day. Until then, we will continue to monitor and treat as needed. #[id number] [facility]
[2019-10-05] MEDS: ATORVASTATIN 20 MG TAB PO SCH (20:35)
[2019-10-05] MEDS: ENOXAPARIN SODIUM 40 MG/0.4 ML SYG SUBCU SCH (20:35)
[2019-10-05] MEDS: SODIUM CHLORIDE 0.9% (FLUSH) 10 ML SYG IV PRN (23:14)
[2019-10-06] MEDS: PANTOPRAZOLE SODIUM TAB 40 MG PO SCH (06:46)
[2019-10-06] MEDS: METOPROLOL TARTRATE 50 MG TAB PO SCH ×2 (07:24→17:26)
[2019-10-06] MEDS ORDERED: BUDESONIDE NEBS 0.25 MG/2 ML INH ONE ×2 (08:16→08:19)
[2019-10-06] MEDS: predniSONE 20 MG TAB PO SCH (08:24)
[2019-10-06] MEDS: PRIMIDONE 50 MG TAB PO SCH ×2 (08:25→20:47)
[2019-10-06] MEDS: ASPIRIN (ENTERIC COATED) 81 MG TAB PO SCH (08:25)
[2019-10-06] MEDS: DULoxetine HCL 30 MG CAP PO SCH (08:25)
[2019-10-06] MEDS: guaiFENesin ER TAB 600 MG TAB PO SCH ×2 (08:25→20:47)
[2019-10-06] MEDS: LISINOPRIL 10 MG TAB PO SCH (08:25)
[2019-10-06] MEDS: ROFLUMILAST PO SCH (08:25)
[2019-10-06] MEDS: IPRATROPIUM/ALBUTEROL 3 ML VIAL NEB SCH ×4 (08:41→20:20)
[2019-10-06] MEDS: BUDESONIDE NEBS 0.5 MG/2 ML INH NEB SCH ×2 (08:43→20:20)
[2019-10-06] MEDS: TIOTROPIUM INHALER INH SCH (08:43)
[2019-10-06] MEDS: CEFEPIME 2 GM in SODIUM CHL 0.9% 100ML MINI-BAG 100 ML IVPB SCH (11:38)
--- NOTE | 2019-10-06 19:47 | PN ---
SUPERVISING PHYSICIAN: Vinay Deshpande MD DATE: 10/06/19 SUBJECTIVE: The patient is in much better sprits today. She is anxious to get out and ambulate, still waiting on Covid testing. She feels like she is about 80% back to her baseline level in regards to her respiratory status. She has not had any chest pain, nausea, vomiting, diarrhea. Says she is a little constipated but nothing major. OBJECTIVE: VITAL SIGNS: Temperature 98. Pulse 95. Blood pressure 130/80. Respirations 18. Saturation 90% on 2 liters nasal cannula. GENERAL: The patient is resting comfortably, does not appear to be in any acute distress. CHEST: Lung sounds were much better in regards to aeration today. They are clear, just slightly diminished towards the bases, no wheezing or rhonchi noted. No rales. HEART: Regular rate and rhythm.; ABDOMEN: Soft, nontender. Positive bowel sounds. EXTREMITIES: No edema. NEUROLOGIC: Alert and oriented times three. LABORATORY: No additional laboratory or radiographic studies today. MICROBIOLOGY: Final cultures results on sputum showed normal respiratory sheila. Blood cultures remain negative after 4 days. ASSESSMENT: 1. Sepsis due to left upper lobe pneumonia, community acquired, with the patient with a longstanding of advanced chronic obstructive pulmonary disease, showing improvement with treatment. 2. Chronic obstructive pulmonary disease with acute exacerbation, secondary to #1. 3. History of hypertension. 4. High risk for COVID-19, pending testing. 5. History of congestive heart failure, diastolic in etiology with an ejection fraction of 65% per echocardiogram in 2007. 7. Seasonal allergies. 8. Osteoarthritis. PLAN: We are still waiting on COVID testing. Once available for review and is negative, we can get her out of isolation and have her evaluated with physical therapy to make sure she is safe and had some deconditioning, and results in possible falls on discharge. In regards to her respiratory effort, this has improved. We will continue with plan of care at this point. I anticipate discharge as soon as we can clear her and evaluate her for physical therapy. Until then, we will continue with oral prednisone, Levaquin, Cefepime and aggressive pulmonary hygiene. We will continue to monitor and treat as needed until she can transition back to outpatient management. #[id number] [facility]
[2019-10-06] MEDS ORDERED: BUDESONIDE NEBS 0.5 MG/2 ML INH NEB ONE (20:08)
[2019-10-06] MEDS: levoFLOXacin 750MG IV 750 MG in PREMIX BAG 1 BAG IVPB SCH (20:46)
[2019-10-06] MEDS: SODIUM CHLORIDE 0.9% (FLUSH) 10 ML SYG IV PRN (20:46)
[2019-10-06] MEDS: ENOXAPARIN SODIUM 40 MG/0.4 ML SYG SUBCU SCH (20:47)
[2019-10-06] MEDS: ATORVASTATIN 20 MG TAB PO SCH (20:47)
[2019-10-07] MEDS: PANTOPRAZOLE SODIUM TAB 40 MG PO SCH (05:44)
[2019-10-07] MEDS: METOPROLOL TARTRATE 50 MG TAB PO SCH (08:14)
[2019-10-07] MEDS: predniSONE 20 MG TAB PO SCH (08:49)
[2019-10-07] MEDS: ROFLUMILAST PO SCH (08:49)
[2019-10-07] MEDS: LISINOPRIL 10 MG TAB PO SCH (08:49)
[2019-10-07] MEDS: DULoxetine HCL 30 MG CAP PO SCH (08:49)
[2019-10-07] MEDS: guaiFENesin ER TAB 600 MG TAB PO SCH (08:49)
[2019-10-07] MEDS: PRIMIDONE 50 MG TAB PO SCH (08:49)
[2019-10-07] MEDS: ASPIRIN (ENTERIC COATED) 81 MG TAB PO SCH (08:49)
[2019-10-07] MEDS: IPRATROPIUM/ALBUTEROL 3 ML VIAL NEB SCH ×2 (09:00→13:46)
[2019-10-07] MEDS: BUDESONIDE NEBS 0.5 MG/2 ML INH NEB SCH (09:00)
[2019-10-07] MEDS: TIOTROPIUM INHALER INH SCH (09:00)
[2019-10-07] MEDS: CEFEPIME 2 GM in SODIUM CHL 0.9% 100ML MINI-BAG 100 ML IVPB SCH ×3 (11:52)
--- NOTE | 2019-10-07 13:23 | DS ---
SUPERVISING PHYSICIAN: Vinay Deshpande MD DISCHARGE DIAGNOSIS: 1. Sepsis due to left upper lobe pneumonia, community acquired, with the patient with longstanding of advanced chronic obstructive pulmonary disease, showing improvement with treatment. 2. Chronic obstructive pulmonary disease with acute exacerbation, secondary to #1. 3. History of hypertension. 4. High risk for COVID-19, pending testing. 5. History of congestive heart failure, diastolic in etiology with an ejection fraction of 65% per echocardiogram in 2007. 7. Seasonal allergies. 8. Osteoarthritis. HISTORY OF PRESENT ILLNESS: This is an 79-year-old female patient who presented to the Emergency Room for the second time in four days due to shortness of breath. She has a long history of chronic obstructive pulmonary disease. She quit smoking approximately 11 years ago. At the end of July, she saw her primary care physician, Dr. Young, for shortness of breath with an exacerbation of chronic obstructive pulmonary disease. He gave her some steroids and put her on Zithromax. She got quite a bit better, but the Saturday prior to her admission, she suddenly became very short of breath with wheezing. There was minimal cough, but she did have wheezing and shortness of breath that worsened over the next day or so. She went to the Emergency Room and actually got a dose of IV Solu-Medrol as well as a Medrol Dosepak. She went home and her symptoms continued to worsen, so she came back to the Emergency Room. Her initial vital signs showed a temperature of 97.3 with a heart rate of 98 that went up to the 1-teens. Blood pressure was 109/76 with a respiratory rate in the mid 20s. Lab studies were done and her initial WBCs were 29,700 with a left shift on her differential. Her electrolytes were basically within normal limits, but her lactic acid was 3.5. CK-MB was 6.9 and BNP was 236. She received some fluids in the Emergency Room and blood cultures were drawn. She was given several breathing treatments. She was started on Rocephin and azithromycin. Followup lactic acid only came down to 2.4. She was visibly short of breath. She was admitted to the hospital in stable condition. HOSPITAL COURSE: The pneumonia guidelines were started and COVID-19 testing was done. She was on aggressive pulmonary hygiene as well as continued on azithromycin and Rocephin. She had IV steroids that were tapered slowly. She actually had been tapered almost off of her IV steroids, but had a setback and became extremely short of breath after getting up to the beside commode. She had a difficult time over the next several hours with extreme shortness of breath and her oxygen saturations were in the 70s and 80s. A Hopkins catheter was placed and her IV steroid dosing was increased somewhat and slowly titrated off. Two days ago, she was placed on oral steroids. Over the next several days, she slowly progressed. She was severely deconditioned due to her illness. Aggressive pulmonary hygiene was continued. We were awaiting her COVID-19 results to have an evaluation by physical therapy for safety to be discharged home. Bladder training was done and her Hopkins was discontinued. Her Rocephin was changed to cefepime. Her Zithromax was discontinued and changed to Levaquin. She slowly progressed over the next few days. Again, we were awaiting COVID-19 results so she could be evaluated by physical therapy for discharge. Today, [facility] has agreed to evaluate the patient from a physical therapy standpoint for safety once the COVID-19 results are returned and she will be discharged home with self-isolation until those results are back. LABORATORY: WBCs started at 29,700 and went down to 14,000 and are now 18,300. Hemoglobin is stable at 14.3 and hematocrit 43.6. Sodium stable at 136, potassium 3.1. She did receive supplementation today. Chloride is 105. Carbon dioxide 22, BUN 16, creatinine 0.66. Lactic acid did come down to 2. Calcium stable at 8.7. Liver function tests within normal limits. Urinalysis was unremarkable. MICROBIOLOGY: Sputum culture shows no growth. Blood cultures show no growth after 5 days. Influenza type A and B per PCR were both negative. RADIOLOGY: Her final chest x-ray showed no active disease in the chest. DISCHARGE PLAN: The patient will be discharged home in stable condition. She is to be on self-isolation until her COVID-19 testing has been resulted. She will have [facility] and as soon as COVID-19 testing is back, she will have an evaluation by physical therapy for safety. She may need physical therapy due to her severe deconditioning due to her illness. She is to resume her previous diet and resume her previous medications in addition to her routine medications. She is to continue 4 days of Levaquin, 5 days of cefdinir and a prednisone taper. She has a followup appointment with Dr. Luis Manuel Young on 10/13/19 at 1:45 pm. It is a telemedicine visit and she has been instructed it will be via telephone and his office will call to discuss her appointment. He can decide if he wants to order labs. She is to return to the hospital or followup with Dr. Young for any problems or complications. DISCHARGE MEDICATIONS: 1. Tramadol. 2. Spiriva. 3. Daliresp. 4. Primidone. 5. Lisinopril. 6. Flovent. 7. Duloxetine. 8. Atorvastatin. 9. Aspirin. 10. Brovana. 11. Pantoprazole. 12. DuoNeb. 13. Albuterol. 14. Metoprolol. 15. Meloxicam. 16. Megestrol. 17. Trelegy. 18. Cefdinir. 19. Levaquin. 20. Prednisone taper. #[id number] [facility]
[2019-10-07 14:07] VITALS: BP 135/69; TEMP 98.1; O2SAT 98
== END 2019-10-07 15:19 | disposition home health service (06) | DRG 871 ==
LOC: ER 19:14 → MS 22:24 → OBSVTOIN 22:24
PROVIDERS: ADMIT Nurse Practitioner Acute Care; ATTEND Nurse Practitioner Acute Care
DX: A41.9 Sepsis, unspecified organism (principal); J18.9 Pneumonia, unspecified organism; J44.0 Chronic obstructive pulmonary disease with (acute) lower respiratory infection; J44.1 Chronic obstructive pulmonary disease with (acute) exacerbation; I50.32 Chronic diastolic (congestive) heart failure; I11.0 Hypertensive heart disease with heart failure; J30.2 Other seasonal allergic rhinitis; E11.9 Type 2 diabetes mellitus without complications; K21.9 Gastro-esophageal reflux disease without esophagitis; M19.90 Unspecified osteoarthritis, unspecified site; Z87.891 Personal history of nicotine dependence; E78.5 Hyperlipidemia, unspecified; Z79.82 Long term (current) use of aspirin; Z79.891 Long term (current) use of opiate analgesic; Z79.899 Other long term (current) drug therapy

== ENCOUNTER → 2019-11-10 | Outpatient (CLI) | payer MEDICARE | LOC: NC 14:34 | PROVIDERS: ATTEND Family Medicine | DX: J18.9 Pneumonia, unspecified organism (principal); J44.9 Chronic obstructive pulmonary disease, unspecified; I11.0 Hypertensive heart disease with heart failure; I50.9 Heart failure, unspecified ==

== ENCOUNTER → 2020-04-11 | Outpatient (CLI) | payer MEDICARE | LOC: NC 15:19 | PROVIDERS: ATTEND Family Medicine | DX: R30.0 Dysuria (principal) ==